=== PATIENT | female | born 1980 | race Caucasian/White ===

== ENCOUNTER → 2024-07-24 13:02 | Outpatient (REF) | payer OTHER, SELFPAY | LOC: RAD 13:02 | PROVIDERS: ATTENDING PHYSICIAN Nurse Practitioner | DX: J06.9 Acute upper respiratory infection, unspecified (principal); M54.2 Cervicalgia | CPT/HCPCS: 71046; 72050 ==

== ENCOUNTER → 2025-06-10 13:43 | Outpatient (REF) | payer OTHER, SELFPAY | LOC: DHSLP 13:43 | PROVIDERS: ATTENDING PHYSICIAN Hospitalist | DX: G47.19 Other hypersomnia (principal); R06.83 Snoring | CPT/HCPCS: 95800 ==

== ENCOUNTER → 2025-07-03 09:40 | Outpatient (REF) | payer OTHER, SELFPAY | LOC: WDC 09:40 | PROVIDERS: ATTENDING PHYSICIAN Nurse Practitioner Women's Health; FAMILY PHYSICIAN Hospitalist | DX: Z12.31 Encounter for screening mammogram for malignant neoplasm of breast (principal) | CPT/HCPCS: 77063; 77067 ==